=== PATIENT | female | born 1985 | race Caucasian/White ===

== ENCOUNTER → 2020-01-09 10:21 | Outpatient (CLI) | payer OTHER, SELFPAY ==
--- NOTE | 2020-01-09 | DI.US.S_ITS ---
PROCEDURE: US PELVIC COMPLETE INDICATIONS: RIGHT LOWER QUADRANT PAIN TECHNIQUE: Real-time scanning was performed of the pelvic organs, with image documentation. Additional endovaginal scanning was necessary due to incomplete visualization of the adnexal and endometrial structures by transabdominal scanning. COMPARISON: None. FINDINGS: Transabdominal scanning: Limited scanning through the kidneys shows no hydronephrosis. Trace free fluid in the right pelvis. Endovaginal scanning: Uterus: Uterus is normal in size at 10 x 5 x 6.7 cm. No mass. The endometrium measures 16 mm in combined thickness. Endometrium is heterogeneous. Small nabothian cysts. Ovaries: Right ovary measures 4.2 x 2.6 x 2.7 cm. Right ovarian simple cyst measuring 2.2 x 1.7 x 1.6 cm. Left ovary measures 4 x 2.2 x 2.6 cm. Echogenic focus in the left ovary measuring 0.4 x 0.3 x 0.2 cm. No posterior acoustic shadowing. IMPRESSION: 1. Heterogeneous trilaminar endometrium with a combined thickness of 16 mm. 2. Small echogenic focus in the left ovary measuring 4 mm. This potentially could represent a small dermoid cyst or hemorrhagic cyst. Consider follow up pelvic ultrasound in 3-6 month. 3. Small simple right ovarian cyst. Trace free fluid in the right pelvis. Dictated by: Fredrick Martinez M.D. on 01/09/2020 at 17:43 Approved by: Frderick Martinez M.D. on 01/09/2020 at 17:48
== END ==
PROVIDERS: Referring Provider Nurse Practitioner Family; Visit Provider Nurse Practitioner Family
DX: R10.31 Right lower quadrant pain (principal); N83.291 Other ovarian cyst, right side
CPT/HCPCS: 76830; 76856

== ENCOUNTER → 2023-12-18 07:42 | Outpatient (CLI) | payer OTHER, SELFPAY ==
--- NOTE | 2023-12-18 07:43 | DI.US.S_ITS ---
PROCEDURE: US PELVIC COMPLETE INDICATIONS: RIGHT ADNEXA PAIN INTERMITTENT. H/O PCOS PER PATIENT. TECHNIQUE: Real-time scanning was performed of the pelvic organs, with image documentation. Additional endovaginal scanning was necessary due to incomplete visualization of the adnexal and endometrial structures by transabdominal scanning. COMPARISON: [facility], , US PELVIC COMPLETE, 01/09/2020, 10:28. FINDINGS: Uterus: Uterus is anteverted and normal in size at 9.0 x 5.6 x 4.4 cm. The myometrium is homogeneous. The endometrium measures 9.8 mm combined thickness. Echogenic focus in the mid endometrium 3 mm Ovaries: The right ovary measures 3.4 x 3.2 x 2.4 cm, with a calculated ovarian volume of 13.2 cc. The left ovary measures 3.4 x 2.0 x 2.1 cm. The ovaries have a normal sonographic appearance. Right ovary contains greater than 12 follicles No adnexal masses are seen. Other: No pathologic free abdominal or pelvic fluid. IMPRESSION: Greater than 12 follicles noted in the right ovary. This finding has been correlated with polycystic ovarian syndrome in the proper clinical setting Approved by: Umer Sharma M.D. on 12/18/2023 at 18:19
== END ==
PROVIDERS: PCP Nurse Practitioner Family; Referring Provider Nurse Practitioner Family; Visit Provider Nurse Practitioner Family
DX: R10.2 Pelvic and perineal pain (principal)
CPT/HCPCS: 76830; 76856; 93975